=== PATIENT | female | born 2000 | race Caucasian/White ===

== ENCOUNTER 2022-04-21 13:55 | Outpatient (REF) | payer BC, SELFPAY ==
[2022-04-21 17:35] LABS: Alanine Aminotransferase 79 U/L (0-31); Albumin Level 4.4 g/dL (3.5-5.0); Alkaline Phosphatase 63 U/L (39-117); Anion Gap 10 (12-20); Aspartate Amino Transferase 44 U/L (5-31); Bilirubin Total 0.3 mg/dL (0.0-1.0); Blood Urea Nitrogen 7 mg/dL (9-16); Calcium 9.9 mg/dL (8.4-10.2); Carbon Dioxide 28 mmol/L (22-29); Chloride 106 mmol/L (96-108); Estimated Glomerular Filt Rate > 60; Free T4 (Free Thyroxine) 0.92 ng/dL (0.71-1.85); Glucose Random 86 mg/dL (60-115); Potassium 4.3 mmol/L (3.3-5.1); Sodium 140 mmol/L (135-145); Thyroid Stimulating Hormone 2.32 uIU/mL (0.32-4.0); Total Protein 6.6 g/dL (6.5-8.0)
== END 2022-04-21 13:56 | disposition home or self-care (01) ==
LOC: HO.LAB 13:55
PROVIDERS: Visit Provider Nurse Practitioner Psychiatric/Mental Health
DX: F33.2 Major depressive disorder, recurrent severe without psychotic features (principal)
CPT/HCPCS: 36415; 80053; 84439; 84443

== ENCOUNTER 2022-04-26 08:00 | Outpatient (RCR) | payer BC, SELFPAY ==
[2022-04-05 12:20] LABS: Amphetamine Screen Urine Not Detected (Not Detect); Barbiturates, Urine Not Detected (Not Detect); Benzodiazepines Screen Urine Not Detected (Not Detect); Cannabinoid Screen Urine Not Detected (Not Detect); Cocaine Screen Urine Not Detected (Not Detect); Fentanyl, urine Not Detected (Not Detect); Opiate Screen Urine Not Detected (Not Detect); Phencyclidine Screen Urine Not Detected (Not Detect)
[2022-04-05 12:39] VITALS: BMI 22.6
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
[2022-04-05 13:37] VITALS: BP 110/56; PULSE 76; TEMP 37.2
--- NOTE | 2022-04-05 16:44 | HO.PHPIOP ---
Case opened in treatment team.
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
--- NOTE | 2022-04-14 16:10 | P.PNPSP_ITS ---
Subjective Subjective Date of Service: 04/14/22 Reason For Visit: MDD Medical Problems Affecting Mental Status: No Interim History: Describes mood as ?yesterday it was rough, I have been cranky ?. Reports that overall mood has not been ?as intense, with some improvement ?. Less depressed. Poor sleep. Reports increased appetite as a side effect from olanzapine. Continues to abstain from cannabis. Medication Compliance: Yes Side effects from medications: Yes (increased appetite) Attending Groups: Yes Review of Systems Acute medical concerns: No Medical Review of Systems: unchanged Review of Systems Review of Systems Yes all other systems are reviewed and are negative Constitutional: Reports no additional constitutional complaints Mental Status Exam Mental Status Exam Narrative: NAD Patient Appearance: Well Grooomed and Appropriate Patient Orientation: Person, Place, Time and Situation Level of Consciousness: Appropriate Patient Behavior: Appropriate, Cooperative and Good Eye Contact Mood Description: Depressed (less depressed) Affect Description: Appropriate Patient Cognition Impaired: No Ability to Follow Directions: Excellent Speech Pattern: Clear and Appropriate Memory Description: Intact Hallucinations: None Delusions: Not Present Perceptual Disturbances: Depersonalization Thought Process: Intact Thought Content: positive for Intact Depressive Symptoms: Increased Anxiety, Difficulty Sleeping, Crying Spells, Loss of Int. in Activity, Isolating-Friends/Family, Unhappiness, Increased Fatigue, Loss of Energy and Difficulty Concentrating Judgement: Fair Diagnostics Vital Signs (24Hr): BMI result Body Mass Index 22.6 Assessment & Plan Assessment & Plan (1) Depression, major, severe recurrence: Status: Acute Code(s): F33.2 - Major depressive disorder, recurrent severe without psychotic features Assessment and Plan: Reports that overall mood has not been ?as intense, with some improvement ?. Less depressed. Continues to question whether not she has a bipolar disorder with depression rather than unipolar depression. Wants to remain on mood stabilizer / atypical at this time, as she is finding it helpful. Reports increased appetite as a side effect from olanzapine. Also concerned about thyroid, asking for lab work. Discussed medication options, including Latuda, Abilify, risperidone, quetiapine. Discussion included risks, benefits, side effects specific to each med and for atypicals as a class. Also discussed alternatives for treatment options. Patient's questions were answered to her satisfaction, and she is willing to trial risperidone at this time. Has been discussing medications with her mother, as her mother has bipolar disorder. Reports mother currently taking mirtazapine. We discussed side effects of this medication, including weight gain/increased appetite. Continues to abstain from cannabis. No SI/HI/SIB, no safety concerns at this time. (2) Anxiety: Status: Acute Code(s): F41.9 - Anxiety disorder, unspecified Plan 1. Continue with current [facility] plan of care. 2. D/C olanzapine. 3. Start risperidone 0.5 mg at bedtime, with plan to be assess after several days. 4. Labs ordered, including Chem profile, T4, TSH. Patient educated on: diagnosis, medication risk/benefits, substance abuse and therapeutic strategies Informed Consent: understands Reason for contiued partial hosp. stay Substantial Risk for: inability to function, rapid decompensation and med/psych decompensation Certification I certify that partial hospital treatment is medically necessary due to the symptoms and problems resulting from the patient's mental illness and the failure to treat the patient at the partial hospital level of care would likely result in the patient requiring inpatient psychiatric care which could not be prevented at a less intensive level of care. I spent minutes with the patient and/or on the patient floor today, greater than?50% of which was spent counseling/coordinating care. Discharge Plan Discharge Attending provider: Vitaly Sorto Medications: New clonidine HCl 0.1 mg tablet 0.05 mg PO BID PRN (Reason: anxiety) Qty: 7 0RF fluoxetine 20 mg capsule 20 mg PO DAILY Qty: 14 0RF melatonin 5 mg tablet 5 mg PO BEDTIME PRN (Reason: sleep) Qty: 30 0RF risperidone 0.5 mg tablet 0.5 mg PO BEDTIME Qty: 7 0RF Discontinued olanzapine 7.5 mg tablet 7.5 mg PO BEDTIME Qty: 7 0RF olanzapine 5 mg Tablet 5 mg PO BEDTIME fluoxetine 20 mg Capsule 20 mg PO DAILY melatonin 5 mg Tablet 5 mg PO BEDTIME PRN (Reason: Insomnia) clonidine HCl 0.1 mg Tablet 0.05 mg PO BID PRN (Reason: Anxiety) Rx Instructions: Take 1/2 tab BID PRN No Action cholecalciferol (vitamin D3) [Vitamin D3] 50 mcg (2,000 unit) Capsule 50 mcg PO DAILY Stand Alone Forms: Patient Portal Discharge page Patient Education: Risperidone (By mouth)
--- NOTE | 2022-04-20 10:20 | P.PNPSP_ITS ---
Subjective Subjective Date of Service: 04/20/22 Reason For Visit: MDD Medical Problems Affecting Mental Status: No Interim History: Reports increased depression, with increased intrusive thoughts. Has been tolerating risperidone well, no s/e. Had SI over weekend, state it was a rough weekend . Denies any SI at this time, feels safe. Continues to process grief. Was home in bed yesterday, unsure if it was related to depression, or physical illness, r/t her chronic Lyme. Would like to try lamotrigine for further mood stabilization. Medication Compliance: Yes Side effects from medications: No Attending Groups: Yes Review of Systems Acute medical concerns: No Medical Review of Systems: unchanged Review of Systems Review of Systems Yes all other systems are reviewed and are negative Constitutional: Reports fatigue and Reports lethargy Endocrine: Reports fatigue Mental Status Exam Mental Status Exam Narrative: NAD Patient Appearance: Appropriate Patient Orientation: Person, Place, Time and Situation Level of Consciousness: Appropriate Patient Behavior: Appropriate, Cooperative and Good Eye Contact Mood Description: Depressed Affect Description: Depressed Patient Cognition Impaired: No Ability to Follow Directions: Excellent Speech Pattern: Clear and Appropriate Memory Description: Intact Hallucinations: None Delusions: Not Present Perceptual Disturbances: Depersonalization Thought Process: Intact Thought Content: positive for Intact, positive for Obsessional Thoughts (Intrusive thoughts of SI / self harm) and positive for Suicidal Ideation (Denies any intent or plan. States had a plan over weekend, but did not act on it. Reports feels safe.) Depressive Symptoms: Increased Anxiety, Crying Spells, Sleeping More Than Usual, Loss of Int. in Activity, Isolating-Friends/Family, Unhappiness, Increased Fatigue, Thoughts of /Suicide, Loss of Energy and Difficulty Concentrating Judgement: Fair Diagnostics Vital Signs (24Hr): BMI result Body Mass Index 22.6 Assessment & Plan Assessment & Plan (1) Depression, major, severe recurrence: Status: Acute Code(s): F33.2 - Major depressive disorder, recurrent severe without psychotic features Assessment and Plan: Reports increased depression, with increased intrusive thoughts to harm self. NO intent/plan at this time. Has been tolerating risperidone well, no s/e. No real improvement regarding intrusive thoughts and depression. We discussed increasing does, she was agreeable to this. Had SI over weekend, state it was a rough weekend . Reviewed safety plan with patient. Denies any active SI at this time, feels safe. Continues to process grief of loss of her boyfriend earlier this year. Was home in bed yesterday, unsure if it was related to depression, or physical illness, r/t her chronic Lyme. Would like to try lamotrigine for further mood stabilization. Due to family history of bipolar in patients increased depressive symptoms discussed benefits, risks, alternatives to treatment. After answering questions to her satisfaction, she was agreeable to starting lamotrigine titration. (2) Anxiety: Status: Acute Code(s): F41.9 - Anxiety disorder, unspecified Plan 1. Continue with current [facility] plan of care. 2. Increase risperidone to 0.5 mg b.i.d.. 3. Start lamotrigine 25 mg daily x 14 days, then proceed to lamotrigine 50 mg daily times 14 days. 4. Follow-up as per protocol. Patient educated on: diagnosis, medication risk/benefits and therapeutic strategies Informed Consent: understands Reason for contiued partial hosp. stay Substantial Risk for: harm to self, inability to function and rapid decompensation Certification I certify that partial hospital treatment is medically necessary due to the symptoms and problems resulting from the patient's mental illness and the failure to treat the patient at the partial hospital level of care would likely result in the patient requiring inpatient psychiatric care which could not be prevented at a less intensive level of care. I spent minutes with the patient and/or on the patient floor today, greater than?50% of which was spent counseling/coordinating care. Discharge Plan Discharge Attending provider: Vitaly Sorto Medications: New clonidine HCl 0.1 mg tablet 0.05 mg PO BID PRN (Reason: anxiety) Qty: 7 0RF melatonin 5 mg tablet 5 mg PO BEDTIME PRN (Reason: sleep) Qty: 30 0RF fluoxetine 20 mg capsule 20 mg PO DAILY Qty: 30 0RF risperidone 0.5 mg tablet 0.5 mg PO BID Qty: 14 0RF lamotrigine 25 mg tablet See Rx Instructions .ROUTE .COMPLEX 14 Days Qty: 42 0RF Rx Instructions: 25 mg (1 tab) orally for 14 days, then start 50mg (2 tabs) orally for 14 days. Discontinued olanzapine 7.5 mg tablet 7.5 mg PO BEDTIME Qty: 7 0RF olanzapine 5 mg Tablet 5 mg PO BEDTIME fluoxetine 20 mg Capsule 20 mg PO DAILY melatonin 5 mg Tablet 5 mg PO BEDTIME PRN (Reason: Insomnia) clonidine HCl 0.1 mg Tablet 0.05 mg PO BID PRN (Reason: Anxiety) Rx Instructions: Take 1/2 tab BID PRN No Action cholecalciferol (vitamin D3) [Vitamin D3] 50 mcg (2,000 unit) Capsule 50 mcg PO DAILY Stand Alone Forms: Patient Portal Discharge page Patient Education: Risperidone (By mouth), Lamotrigine (By mouth)
--- NOTE | 2022-04-28 13:41 | HO.PHPPROGNO ---
Subjective Subjective Date of Service: 04/28/22 Reason For Visit: MDD Medical Problems Affecting Mental Status: No Interim History: Describes mood as ?overall pretty good ?. Continues with anxiety, states it has lessened somewhat. Reports still depressed, but symptoms have lessened. No SI, no safety concerns. Feels ready for discharge from [facility] at this time. Requests 30 day refills for each medication. Medication Compliance: Yes Side effects from medications: No Attending Groups: Yes Review of Systems Acute medical concerns: No Medical Review of Systems: unchanged Review of Systems Review of Systems Yes all other systems are reviewed and are negative Constitutional: Reports no additional constitutional complaints Mental Status Exam Mental Status Exam Narrative: NAD Patient Appearance: Appropriate Patient Orientation: Person, Place, Time and Situation Level of Consciousness: Appropriate Patient Behavior: Appropriate, Cooperative and Good Eye Contact Mood Description: Depressed (Reports symptoms have lessened) and Anxious (Reports symptoms have lessened) Affect Description: Calm and Appropriate Patient Cognition Impaired: No Ability to Follow Directions: Excellent Speech Pattern: Clear and Appropriate Memory Description: Intact Hallucinations: None Delusions: Not Present Perceptual Disturbances: Depersonalization Thought Process: Intact Thought Content: positive for Intact Judgement: Good Diagnostics Vital Signs (24Hr): BMI result Body Mass Index 22.6 Assessment & Plan Assessment & Plan (1) Depression, major, severe recurrence: Status: Acute Code(s): F33.2 - Major depressive disorder, recurrent severe without psychotic features Assessment and Plan: Patient reports overall feeling less depressed, less anxious. Taking medications as prescribed, no concerns. No SI/HI, no AH/VH. No safety concerns. Reviewed recent lab work results. Slightly elevated AST/ALT. Patient to follow-up with medical provider going forward. (2) Anxiety: Status: Acute Code(s): F41.9 - Anxiety disorder, unspecified Plan 1. Thirty day prescriptions refills sent to pharmacy. 2. Patient appears stable for discharge from [facility] at this time. 3. Patient to follow up with outpatient providers going forward. Patient educated on: diagnosis, medication risk/benefits and therapeutic strategies Informed Consent: understands Reason for contiued partial hosp. stay Substantial Risk for: stable for discharge Certification I certify that partial hospital treatment is medically necessary due to the symptoms and problems resulting from the patient's mental illness and the failure to treat the patient at the partial hospital level of care would likely result in the patient requiring inpatient psychiatric care which could not be prevented at a less intensive level of care. Total time managing care of this patient today __25__ minutes. Discharge Plan Discharge Attending provider: Vitaly Sorto Medications: New lamotrigine 25 mg tablet See Rx Instructions .ROUTE .COMPLEX 14 Days Qty: 42 0RF Rx Instructions: 25 mg (1 tab) orally for 14 days, then start 50mg (2 tabs) orally for 14 days. risperidone 0.5 mg tablet 0.5 mg PO BID 30 Days Qty: 60 0RF clonidine HCl 0.1 mg tablet 0.05 mg PO BID PRN (Reason: anxiety) Qty: 30 0RF fluoxetine 20 mg capsule 20 mg PO DAILY Qty: 30 0RF lamotrigine 100 mg tablet 100 mg PO DAILY Qty: 30 0RF Rx Instructions: After completion of lamotrigine 50mg for 14 days, start lamotrigine 100mg daily. melatonin 5 mg tablet 5 mg PO BEDTIME PRN (Reason: sleep) Qty: 30 0RF Discontinued olanzapine 7.5 mg tablet 7.5 mg PO BEDTIME Qty: 7 0RF olanzapine 5 mg Tablet 5 mg PO BEDTIME fluoxetine 20 mg Capsule 20 mg PO DAILY melatonin 5 mg Tablet 5 mg PO BEDTIME PRN (Reason: Insomnia) clonidine HCl 0.1 mg Tablet 0.05 mg PO BID PRN (Reason: Anxiety) Rx Instructions: Take 1/2 tab BID PRN No Action cholecalciferol (vitamin D3) [Vitamin D3] 50 mcg (2,000 unit) Capsule 50 mcg PO DAILY Stand Alone Forms: Patient Portal Discharge page Patient Education: Risperidone (By mouth), Lamotrigine (By mouth), Depression (DC), Anxiety (GEN)
== END 2022-04-28 23:59 | disposition home or self-care (01) ==
LOC: HO.PHPA 08:00
PROVIDERS: Nurse Practitioner Psychiatric/Mental Health; Visit Provider Psychiatry & Neurology Psychiatry
DX: F33.2 Major depressive disorder, recurrent severe without psychotic features (principal); F41.9 Anxiety disorder, unspecified; Z79.899 Other long term (current) drug therapy
CPT/HCPCS: 80307; 90791; 90853